=== PATIENT | male | born 1985 | race Two or more races ===

== ENCOUNTER 2025-03-05 15:31 | Emergency (ER) | payer OTHER ==
[~2025-03-05] VITALS: Ht 177.8 cm; Wt 70.3 kg
[2025-03-05 15:44] VITALS: BP 126/69; TEMP 97.9; O2SAT 100
== END 2025-03-05 15:45 ==
LOC: ER 15:37
DX: M25.552 Pain in left hip (principal); G89.29 Other chronic pain